=== PATIENT | female | born 1990 | race Caucasian/White ===

== ENCOUNTER 2019-01-13 10:00 | Outpatient (RCR) | payer OTHER, SELFPAY | END 2019-01-13 10:05 | disposition home or self-care (01) | LOC: PT 10:00 | PROVIDERS: Visit Provider Internal Medicine Cardiovascular Disease | DX: R60.9 Edema, unspecified (principal); I89.0 Lymphedema, not elsewhere classified; M79.604 Pain in right leg; M79.605 Pain in left leg; M79.89 Other specified soft tissue disorders; E66.9 Obesity, unspecified | CPT/HCPCS: 97110; 97140; 97162; 97164 ==

== ENCOUNTER 2019-03-09 09:00 | Outpatient (RCR) | payer OTHER, SELFPAY | END 2019-03-09 09:05 | disposition home or self-care (01) | LOC: PT 09:00 | PROVIDERS: Visit Provider Pediatrics | DX: I89.0 Lymphedema, not elsewhere classified (principal); R60.0 Localized edema | CPT/HCPCS: 97140; 97162 ==